=== PATIENT | female | born 1990 | race Caucasian/White ===

== ENCOUNTER 2017-10-17 11:01 | Observation (INO) | payer SELFPAY ==
[2017-10-17] MEDS ORDERED: Sodium Chloride 0.9% 1,000 ML IV ONE (11:53)
[2017-10-17] MEDS ORDERED: cefTRIAXone 2 GM Vial IVPUSH ONE (11:55)
[2017-10-17 12:35] LABS: CHLORIDE,CL 100 mmol/L (98-107); SODIUM,NA 136 mmol/L (136-145)
[2017-10-17] MEDS: Lactated Ringers 1,000 ML IV SCH ×2 (14:00→18:21)
[2017-10-17] MEDS ORDERED: Formoterol/Mometasone 200-5 MCG 8.8 GM Inhaler IH PRN (14:00)
[2017-10-17] MEDS: Enoxaparin 40 MG/0.4 ML Syringe SUBCUT SCH (14:13)
--- NOTE | 2017-10-17 15:05 | EDM.PDOC ---
ED HPI GENERAL MEDICAL PROBLEM - General Chief Complaint: Back Pain or Injury Stated Complaint: LOWER BACK PAIN Time Seen by Provider: 10/17/17 11:20 Source of Information: Reports: Patient, Family History Limitations: Reports: No Limitations - History of Present Illness INITIAL COMMENTS - FREE TEXT/NARRATIVE: Pt. states that she injured her back "cleaning her yard" yesterday. States that she lifted wrong and is now experiencing L sided low back pain. She states that she has been mildly chilled and diaphoretic. No nausea/vomiting/diarrhea. She denies any rashes. Pt. states that she has not been experiencing any dysuria. No chest pain or shortness of breath. Denies any discoloration to the urine. Pt. states that her blood sugar is always poorly controlled. She states that it typically runs higher than 300, but has been running ever higher since the back pain started. Location: Reports: Back, Generalized Quality: Reports: Burning, Dull Severity: Moderate Improves with: Reports: Rest Left Lower Back Pain Score (Numeric/FACES): 6 - Related Data Allergies Allergy/AdvReac Type Severity Reaction Status Date / Time sunflower seed Allergy Intermediate Anaphylactic Verified 10/17/17 11:15 Shock latex Allergy Other Verified 10/17/17 11:15 shellfish derived Allergy Anaphylactic Verified 10/17/17 11:15 Shock Home Meds: Home Meds metFORMIN HCl [Metformin HCl] 1,000 mg PO BID 08/07/15 [History] Albuterol Sulfate [Proventil Hfa] 1 - 2 puff INH Q4H PRN 05/25/17 [History] Fluticasone/Salmeterol [Advair 250-50 Diskus] 1 puff INH Q12H PRN 05/25/17 [ History] sitaGLIPtin Phosphate [Januvia] 100 mg PO DAILY 05/25/17 [History] Insulin Detemir [Levemir] 20 units DAILY 10/17/17 [History] Past Medical History Respiratory History: Reports: Asthma Other Respiratory History: presents to ED with cough for over a month, reported coughing up phlegm as well. Denies fever/chills/pain. States pain only on occaion with cough. Denies trying any over the counter cold medications. 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 - Past Surgical History GI Surgical History: Reports: Cholecystectomy Social & Family History - Family History Family Medical History: Noncontributory - Tobacco Use Smoking Status *Q: Unknown Ever Smoked Years of Tobacco use: 8 Used Tobacco, but Quit: Yes Month/Year Tobacco Last Used: may Second Hand Smoke Exposure: No - Alcohol Use Days Per Week of Alcohol Use: 0 - Recreational Drug Use Recreational Drug Use: Yes Drug Use in Last 12 Months: Yes Recreational Drug Type: Reports: Marijuana/Hashish Recreational Drug Use Frequency: Rarely ED ROS GENERAL - Review of Systems Review Of Systems: See Below Constitutional: Reports: Chills, Fatigue, Diaphoresis HEENT: Reports: No Symptoms Respiratory: Reports: No Symptoms Cardiovascular: Reports: No Symptoms Endocrine: Reports: No Symptoms GI/Abdominal: Reports: No Symptoms. Denies: Black Stool, Bloody Stool, Diarrhea , Hematemesis, Hematochezia, Nausea : Reports: Flank Pain, Frequency. Denies: Hematuria Musculoskeletal: Reports: No Symptoms Skin: Reports: No Symptoms Neurological: Reports: No Symptoms Psychiatric: Reports: No Symptoms ED EXAM, GENERAL - Physical Exam Exam: See Below Exam Limited By: No Limitations General Appearance: Alert, WD/WN, No Apparent Distress Throat/Mouth: Normal Inspection, Normal Lips, Normal Teeth, Normal Gums, Normal Oropharynx, Normal Voice, No Airway Compromise Head: Atraumatic, Normocephalic Neck: Normal Inspection, Supple, Non-Tender, Full Range of Motion Respiratory/Chest: No Respiratory Distress, Lungs Clear, Normal Breath Sounds, No Accessory Muscle Use, Chest Non-Tender Cardiovascular: Normal Peripheral Pulses, Regular Rate, Rhythm, No Edema, No Gallop, No JVD, No Murmur, No Rub Peripheral Pulses: 4+: Radial (L), Radial (R) GI/Abdominal: Normal Bowel Sounds, Soft, Non-Tender, No Organomegaly, No Distention, No Abnormal Bruit, No Mass (Female) Exam: Deferred Rectal (Female) Exam: Deferred Back Exam: CVA Tenderness (L) Extremities: Normal Inspection, Normal Range of Motion, Non-Tender, Normal Capillary Refill, No Pedal Edema Neurological: Alert, Oriented, CN II-XII Intact, Normal Cognition, Normal Gait, Normal Reflexes, No Motor/Sensory Deficits Psychiatric: Normal Affect, Normal Mood Skin Exam: Warm, Dry, Intact, Normal Color, No Rash Lymphatic: No Adenopathy Course - Vital Signs Last Recorded V/S: Last Vital Signs Temp 36.2 C 10/17/17 13:18 Pulse 116 H 10/17/17 13:18 Resp 18 10/17/17 13:18 BP 124/93 H 10/17/17 13:18 Pulse Ox 98 10/17/17 13:18 - Orders/Labs/Meds Orders: Active Orders 24 hr Category Date Time Status Abdomen Pelvis wo Cont [CT] Stat Exams 10/17/17 12:23 Taken CULTURE BLOOD [BC] Stat Lab 10/17/17 12:00 Received CULTURE BLOOD [BC] Stat Lab 10/17/17 12:05 Received Sodium Chloride 0.9% [Saline Flush] Med 10/17/17 11:49 Active 10 ml FLUSH ASDIRECTED PRN Blood Culture x2 Reflex Set [OM.PC] Stat Oth 10/17/17 11:50 Ordered Peripheral IV Insertion Adult [OM.PC] Routine Oth 10/17/17 11:50 Ordered Medication Orders Enoxaparin Sodium (Lovenox) 40 mg SUBCUT DAILY [facility] Last Admin: 10/17/17 14:13 Dose: 40 mg Lactated Ringer's (Ringers, Lactated) 1,000 mls @ 250 mls/hr IV ASDIRECTED ROSE Last Admin: 10/17/17 14:00 Dose: 250 mls/hr Insulin Aspart (Novolog) 5 unit SUBCUT TIDMEALS [facility] Insulin Aspart (Novolog) 0 unit SUBCUT TIDMEALS [facility]; Protocol Insulin Detemir (Levemir) 20 unit SUBCUT BEDTIME [facility] Mometasone Furoate/Formoterol Fumar (Dulera 200-5 Mcg) 2 puff IH Q12H PRN PRN Reason: shortness of breath Sitagliptin Phosphate (Januvia) 100 mg PO DAILY [facility] Sodium Chloride (Saline Flush) 10 ml FLUSH ASDIRECTED PRN PRN Reason: Keep Vein Open Labs: Laboratory Tests 10/17/17 10/17/17 10/17/17 Range/Units 11:19 11:19 12:00 WBC 16.2 H (4.0-10.0) x10^3/uL RBC 5.19 (4.00-5.50) x10^6/uL Hgb 16.3 H (12.0-16.0) g/dL Hct 45.7 (33.0-47.0) % MCV 88.1 (78.0-93.0) fL MCH 31.4 (26.0-32.0) pg MCHC 35.7 (32.0-36.0) g/dL RDW Coeff of Cristina 12.4 (10.0-15.0) % Plt Count 211 (130-400) x10^3/uL Neut % (Auto) 94.3 H (50.0-80.0) % Lymph % (Auto) 2.0 L (25.0-50.0) % [place] % (Auto) 3.1 (2.0-11.0) % Eos % (Auto) 0.4 (0.0-4.0) % Baso % (Auto) 0.2 (0.2-1.2) % PT (9.8-11.8) SEC INR (2.0-3.5) Sodium (136-145) mmol/L Potassium (3.5-5.1) mmol/L Chloride (98-107) mmol/L Carbon Dioxide (21-32) mmol/L Anion Gap (10-20) mmol/L BUN (7-18) mg/dL Creatinine (0.55-1.02) mg/dL Est Cr Clr Drug Dosing mL/min Estimated GFR (MDRD) Glucose (74-106) mg/dL Lactic Acid (0.4-2.0) mmol/L Calcium (8.5-10.1) mg/dL Corrected Calcium (8.5-10.1) mg/dL Total Bilirubin (0.2-1.0) mg/dL AST (15-37) U/L ALT (14-59) U/L Alkaline Phosphatase (46-116) U/L C-Reactive Protein (<=0.9) mg/dL Total Protein (6.4-8.2) g/dL Albumin (3.4-5.0) g/dL Globulin Albumin/Globulin Ratio Urine Color Yellow (YELLOW) Urine Appearance Cloudy H (CLEAR) Urine pH 5.5 (5.0-8.0) Ur Specific [place] 1.015 Urine Protein 100 H (NEGATIVE) mg/dL Urine Glucose (UA) 500 H (NEGATIVE) mg/dL Urine Ketones 80 H (NEGATIVE) mg/dL Urine Occult Blood Moderate H (NEGATIVE) Urine Nitrite Positive H (NEGATIVE) Urine Bilirubin Negative (NEGATIVE) Urine Urobilinogen 0.2 (0.2) EU/dL Ur Leukocyte Esterase Small H (NEGATIVE) Urine RBC 10-20 H (NOT SEEN) /HPF Urine WBC 5-10 H (NOT SEEN) /HPF Ur Squamous Epith Cells Moderate H (NEGATIVE) /HPF Amorphous Sediment Moderate Urine Bacteria Few H (NEGATIVE) /HPF Urine Mucus Few H (NEGATIVE) /LPF POC Urine HCG, Qual Negative 10/17/17 10/17/17 10/17/17 Range/Units 12:00 12:00 12:00 WBC (4.0-10.0) x10^3/uL RBC (4.00-5.50) x10^6/uL Hgb (12.0-16.0) g/dL Hct (33.0-47.0) % MCV (78.0-93.0) fL MCH (26.0-32.0) pg MCHC (32.0-36.0) g/dL RDW Coeff of Cristina (10.0-15.0) % Plt Count (130-400) x10^3/uL Neut % (Auto) (50.0-80.0) % Lymph % (Auto) (25.0-50.0) % [place] % (Auto) (2.0-11.0) % Eos % (Auto) (0.0-4.0) % Baso % (Auto) (0.2-1.2) % PT 10.0 (9.8-11.8) SEC INR 0.9 L (2.0-3.5) Sodium 136 (136-145) mmol/L Potassium 3.9 (3.5-5.1) mmol/L Chloride 100 (98-107) mmol/L Carbon Dioxide 18 L (21-32) mmol/L Anion Gap 21.9 H (10-20) mmol/L BUN 11 (7-18) mg/dL Creatinine 0.9 (0.55-1.02) mg/dL Est Cr Clr Drug Dosing 87.90 mL/min Estimated GFR (MDRD) > 60 Glucose 343 H (74-106) mg/dL Lactic Acid 3.0 H* (0.4-2.0) mmol/L Calcium 9.3 (8.5-10.1) mg/dL Corrected Calcium 9.46 (8.5-10.1) mg/dL Total Bilirubin 1.6 H (0.2-1.0) mg/dL AST 75 H (15-37) U/L ALT 115 H (14-59) U/L Alkaline Phosphatase 130 H (46-116) U/L C-Reactive Protein 6.3 H (<=0.9) mg/dL Total Protein 8.1 (6.4-8.2) g/dL Albumin 3.8 (3.4-5.0) g/dL Globulin 4.3 Albumin/Globulin Ratio 0.88 Urine Color (YELLOW) Urine Appearance (CLEAR) Urine pH (5.0-8.0) Ur Specific [place] Urine Protein (NEGATIVE) mg/dL Urine Glucose (UA) (NEGATIVE) mg/dL Urine Ketones (NEGATIVE) mg/dL Urine Occult Blood (NEGATIVE) Urine Nitrite (NEGATIVE) Urine Bilirubin (NEGATIVE) Urine Urobilinogen (0.2) EU/dL Ur Leukocyte Esterase (NEGATIVE) Urine RBC (NOT SEEN) /HPF Urine WBC (NOT SEEN) /HPF Ur Squamous Epith Cells (NEGATIVE) /HPF Amorphous Sediment Urine Bacteria (NEGATIVE) /HPF Urine Mucus (NEGATIVE) /LPF POC Urine HCG, Qual Meds: Medications Generic Name Dose Route Start Last Admin Trade Name Freq PRN Reason Stop Dose Admin Enoxaparin Sodium 40 mg 10/17/17 14:00 10/17/17 14:13 Lovenox SUBCUT 40 mg DAILY [facility] Administration Lactated Ringer's 1,000 mls @ 250 mls/hr 10/17/17 13:30 10/17/17 14:00 Ringers, Lactated IV 250 mls/hr ASDIRECTED ROSE Administration Insulin Aspart 5 unit 10/17/17 18:00 Novolog SUBCUT TIDMEALS RO[facility] Insulin Aspart 0 unit 10/17/17 18:00 Novolog SUBCUT TIDMEALS [facility] Protocol Insulin Detemir 20 unit 10/17/17 20:00 Levemir SUBCUT BEDTIME [facility] Mometasone Furoate/Formoterol Fumar 2 puff 10/17/17 14:00 Dulera 200-5 Mcg IH Q12H PRN shortness of breath Sitagliptin Phosphate 100 mg 10/18/17 08:00 Januvia PO DAILY [facility] Sodium Chloride 10 ml 10/17/17 11:49 Saline Flush FLUSH ASDIRECTED PRN Keep Vein Open Discontinued Medications Generic Name Dose Route Start Last Admin Trade Name Freq PRN Reason Stop Dose Admin Ceftriaxone Sodium 2 gm 10/17/17 11:55 10/17/17 12:09 Rocephin IVPUSH 10/17/17 11:56 2 gm ONETIME ONE Administration Sodium Chloride 1,000 mls @ 1,000 mls/hr 10/17/17 11:53 10/17/17 12:05 Normal Saline IV 10/17/17 12:52 1,000 mls/hr .BOLUS ONE Administration - Radiology Interpretation Free Text/Narrative:: CT abdomen and pelvis without contrast were negative for kidney stone Departure - Departure Time of Disposition: 13:18 Disposition: Refer to Observation Clinical Impression: Pyelonephritis, Sepsis secondary to UTI - Discharge Information - Problem List Review Problem List Initiated/Reviewed/Updated: Yes - My Orders Last 24 Hours: My Active Orders 10/17/17 11:49 Sodium Chloride 0.9% [Saline Flush] 10 ml FLUSH ASDIRECTED PRN 10/17/17 11:50 Blood Culture x2 Reflex Set [OM.PC] Stat Peripheral IV Insertion Adult [OM.PC] Routine 10/17/17 12:00 CULTURE BLOOD [BC] Stat 10/17/17 12:05 CULTURE BLOOD [BC] Stat 10/17/17 12:23 Abdomen Pelvis wo Cont [CT] Stat - Assessment/Plan Admission H&P: Please use this note as an admission H&P Last 24 Hours: My Active Orders 10/17/17 11:49 Sodium Chloride 0.9% [Saline Flush] 10 ml FLUSH ASDIRECTED PRN 10/17/17 11:50 Blood Culture x2 Reflex Set [OM.PC] Stat Peripheral IV Insertion Adult [OM.PC] Routine 10/17/17 12:00 CULTURE BLOOD [BC] Stat 10/17/17 12:05 CULTURE BLOOD [BC] Stat 10/17/17 12:23 Abdomen Pelvis wo Cont [CT] Stat Assessment:: Sepsis; acute pyelonephritis Type 2 DM, uncontrolled Plan: Pt. will be admitted to our facility on observtion status. Lactic acid will be trended. Rocephin 1mg daily for UTI. She was given 2 gm today. She was given a liter or Normal Saline and will be transitioned to LR at 250ml/ hr. Pt. was started on sliding scale insulin. Her Metformin was discontinued due to her lactic acidosis.
[2017-10-17] MEDS ORDERED: Insulin Aspart 100 Units/ML 3 ML Pen SUBCUT ONE (15:34)
[2017-10-17] MEDS ORDERED: Ketorolac 30 MG/ML SDV IVPUSH ONE (17:56)
[2017-10-17] MEDS ORDERED: Ondansetron 4 MG/2 ML SDV IVPUSH ONE (17:56)
[2017-10-17] MEDS ORDERED: Insulin Aspart 100 Units/ML 3 ML Pen SUBCUT SCH (18:00)
[2017-10-17] MEDS: Sodium Chloride 0.9% 10 ML Syringe FLUSH PRN (18:21)
[2017-10-17] MEDS: Insulin Aspart 100 Units/ML 3 ML Pen SUBCUT SCH (18:25)
[2017-10-17] MEDS: Insulin Aspart 100 Units/ML 3 ML Pen **OWN MED SUBCUT SCH (18:25)
[2017-10-17] MEDS: Insulin Detemir 100 Units/ML 3 ML Pen SUBCUT SCH (20:11)
[2017-10-17] MEDS: Acetaminophen/HYDROcodone 325-10 MG Tab PO PRN (20:47)
[2017-10-18] MEDS: Lactated Ringers 1,000 ML IV SCH ×3 (00:09→16:29)
[2017-10-18] MEDS: Acetaminophen/HYDROcodone 325-10 MG Tab PO PRN ×2 (04:01→21:03)
[2017-10-18] MEDS: Enoxaparin 40 MG/0.4 ML Syringe SUBCUT SCH (07:46)
[2017-10-18] MEDS: Insulin Aspart 100 Units/ML 3 ML Pen SUBCUT SCH ×3 (07:52→17:27)
[2017-10-18] MEDS: Insulin Aspart 100 Units/ML 3 ML Pen **OWN MED SUBCUT SCH ×4 (07:52→21:07)
[2017-10-18 08:43] LABS: CHLORIDE,CL 101 mmol/L (98-107); SODIUM,NA 137 mmol/L (136-145)
[2017-10-18] MEDS: cefTRIAXone 1 GM Vial IVPUSH SCH (11:36)
--- NOTE | 2017-10-18 11:48 | PCM.PN ---
- General Info Date of Service: 10/18/17 Admission Dx/Problem (Free Text): Sepsis, pyelonephritis, uncontrolled DM II Functional Status: Reports: Pain Controlled, Tolerating Diet, Ambulating, Urinating - Review of Systems General: Reports: No Symptoms HEENT: Reports: No Symptoms Pulmonary: Reports: No Symptoms Cardiovascular: Reports: No Symptoms Gastrointestinal: Reports: No Symptoms Genitourinary: Reports: No Symptoms Musculoskeletal: Reports: No Symptoms Skin: Reports: No Symptoms Neurological: Reports: No Symptoms Psychiatric: Reports: No Symptoms - Patient Data Vitals - Most Recent: Last Vital Signs Temp 36.9 C 10/18/17 10:00 Pulse 94 10/18/17 10:00 Resp 20 10/18/17 10:00 BP 106/61 10/18/17 10:00 Pulse Ox 94 L 10/18/17 10:00 Weight - Most Recent: 117.027 kg I&O - Last 24 Hours: Intake & Output 10/17/17 10/18/17 10/18/17 22:59 06:59 14:59 Intake Total 1600 3267 1170 Output Total 600 1650 1600 Balance 1000 1617 -430 Lab Results Last 24 Hours: Laboratory Results - last 24 hr 10/17/17 10/17/17 10/17/17 Range/Units 11:19 11:19 12:00 WBC 16.2 H (4.0-10.0) x10^3/uL RBC 5.19 (4.00-5.50) x10^6/uL Hgb 16.3 H (12.0-16.0) g/dL Hct 45.7 (33.0-47.0) % MCV 88.1 (78.0-93.0) fL MCH 31.4 (26.0-32.0) pg MCHC 35.7 (32.0-36.0) g/dL RDW Coeff of Cristina 12.4 (10.0-15.0) % Plt Count 211 (130-400) x10^3/uL Neut % (Auto) 94.3 H (50.0-80.0) % Lymph % (Auto) 2.0 L (25.0-50.0) % [place] % (Auto) 3.1 (2.0-11.0) % Eos % (Auto) 0.4 (0.0-4.0) % Baso % (Auto) 0.2 (0.2-1.2) % PT (9.8-11.8) SEC INR (2.0-3.5) Sodium (136-145) mmol/L Potassium (3.5-5.1) mmol/L Chloride (98-107) mmol/L Carbon Dioxide (21-32) mmol/L Anion Gap (10-20) mmol/L BUN (7-18) mg/dL Creatinine (0.55-1.02) mg/dL Est Cr Clr Drug Dosing mL/min Estimated GFR (MDRD) Glucose (74-106) mg/dL POC Glucose (74-106) mg/dL Lactic Acid (0.4-2.0) mmol/L Calcium (8.5-10.1) mg/dL Corrected Calcium (8.5-10.1) mg/dL Total Bilirubin (0.2-1.0) mg/dL AST (15-37) U/L ALT (14-59) U/L Alkaline Phosphatase (46-116) U/L C-Reactive Protein (<=0.9) mg/dL Total Protein (6.4-8.2) g/dL Albumin (3.4-5.0) g/dL Globulin Albumin/Globulin Ratio Urine Color Yellow (YELLOW) Urine Appearance Cloudy H (CLEAR) Urine pH 5.5 (5.0-8.0) Ur Specific [place] 1.015 Urine Protein 100 H (NEGATIVE) mg/dL Urine Glucose (UA) 500 H (NEGATIVE) mg/dL Urine Ketones 80 H (NEGATIVE) mg/dL Urine Occult Blood Moderate H (NEGATIVE) Urine Nitrite Positive H (NEGATIVE) Urine Bilirubin Negative (NEGATIVE) Urine Urobilinogen 0.2 (0.2) EU/dL Ur Leukocyte Esterase Small H (NEGATIVE) Urine RBC 10-20 H (NOT SEEN) /HPF Urine WBC 5-10 H (NOT SEEN) /HPF Ur Squamous Epith Cells Moderate H (NEGATIVE) /HPF Amorphous Sediment Moderate Urine Bacteria Few H (NEGATIVE) /HPF Urine Mucus Few H (NEGATIVE) /LPF POC Urine HCG, Qual Negative 10/17/17 10/17/17 10/17/17 Range/Units 12:00 12:00 12:00 WBC (4.0-10.0) x10^3/uL RBC (4.00-5.50) x10^6/uL Hgb (12.0-16.0) g/dL Hct (33.0-47.0) % MCV (78.0-93.0) fL MCH (26.0-32.0) pg MCHC (32.0-36.0) g/dL RDW Coeff of Cristina (10.0-15.0) % Plt Count (130-400) x10^3/uL Neut % (Auto) (50.0-80.0) % Lymph % (Auto) (25.0-50.0) % [place] % (Auto) (2.0-11.0) % Eos % (Auto) (0.0-4.0) % Baso % (Auto) (0.2-1.2) % PT 10.0 (9.8-11.8) SEC INR 0.9 L (2.0-3.5) Sodium 136 (136-145) mmol/L Potassium 3.9 (3.5-5.1) mmol/L Chloride 100 (98-107) mmol/L Carbon Dioxide 18 L (21-32) mmol/L Anion Gap 21.9 H (10-20) mmol/L BUN 11 (7-18) mg/dL Creatinine 0.9 (0.55-1.02) mg/dL Est Cr Clr Drug Dosing 87.90 mL/min Estimated GFR (MDRD) > 60 Glucose 343 H (74-106) mg/dL POC Glucose (74-106) mg/dL Lactic Acid 3.0 H* (0.4-2.0) mmol/L Calcium 9.3 (8.5-10.1) mg/dL Corrected Calcium 9.46 (8.5-10.1) mg/dL Total Bilirubin 1.6 H (0.2-1.0) mg/dL AST 75 H (15-37) U/L ALT 115 H (14-59) U/L Alkaline Phosphatase 130 H (46-116) U/L C-Reactive Protein 6.3 H (<=0.9) mg/dL Total Protein 8.1 (6.4-8.2) g/dL Albumin 3.8 (3.4-5.0) g/dL Globulin 4.3 Albumin/Globulin Ratio 0.88 Urine Color (YELLOW) Urine Appearance (CLEAR) Urine pH (5.0-8.0) Ur Specific [place] Urine Protein (NEGATIVE) mg/dL Urine Glucose (UA) (NEGATIVE) mg/dL Urine Ketones (NEGATIVE) mg/dL Urine Occult Blood (NEGATIVE) Urine Nitrite (NEGATIVE) Urine Bilirubin (NEGATIVE) Urine Urobilinogen (0.2) EU/dL Ur Leukocyte Esterase (NEGATIVE) Urine RBC (NOT SEEN) /HPF Urine WBC (NOT SEEN) /HPF Ur Squamous Epith Cells (NEGATIVE) /HPF Amorphous Sediment Urine Bacteria (NEGATIVE) /HPF Urine Mucus (NEGATIVE) /LPF POC Urine HCG, Qual 10/17/17 10/17/17 10/17/17 Range/Units 15:29 17:25 18:05 WBC (4.0-10.0) x10^3/uL RBC (4.00-5.50) x10^6/uL Hgb (12.0-16.0) g/dL Hct (33.0-47.0) % MCV (78.0-93.0) fL MCH (26.0-32.0) pg MCHC (32.0-36.0) g/dL RDW Coeff of Cristina (10.0-15.0) % Plt Count (130-400) x10^3/uL Neut % (Auto) (50.0-80.0) % Lymph % (Auto) (25.0-50.0) % [place] % (Auto) (2.0-11.0) % Eos % (Auto) (0.0-4.0) % Baso % (Auto) (0.2-1.2) % PT (9.8-11.8) SEC INR (2.0-3.5) Sodium (136-145) mmol/L Potassium (3.5-5.1) mmol/L Chloride (98-107) mmol/L Carbon Dioxide (21-32) mmol/L Anion Gap (10-20) mmol/L BUN (7-18) mg/dL Creatinine (0.55-1.02) mg/dL Est Cr Clr Drug Dosing mL/min Estimated GFR (MDRD) Glucose (74-106) mg/dL POC Glucose 384 H 328 H (74-106) mg/dL Lactic Acid 2.2 H* (0.4-2.0) mmol/L Calcium (8.5-10.1) mg/dL Corrected Calcium (8.5-10.1) mg/dL Total Bilirubin (0.2-1.0) mg/dL AST (15-37) U/L ALT (14-59) U/L Alkaline Phosphatase (46-116) U/L C-Reactive Protein (<=0.9) mg/dL Total Protein (6.4-8.2) g/dL Albumin (3.4-5.0) g/dL Globulin Albumin/Globulin Ratio Urine Color (YELLOW) Urine Appearance (CLEAR) Urine pH (5.0-8.0) Ur Specific [place] Urine Protein (NEGATIVE) mg/dL Urine Glucose (UA) (NEGATIVE) mg/dL Urine Ketones (NEGATIVE) mg/dL Urine Occult Blood (NEGATIVE) Urine Nitrite (NEGATIVE) Urine Bilirubin (NEGATIVE) Urine Urobilinogen (0.2) EU/dL Ur Leukocyte Esterase (NEGATIVE) Urine RBC (NOT SEEN) /HPF Urine WBC (NOT SEEN) /HPF Ur Squamous Epith Cells (NEGATIVE) /HPF Amorphous Sediment Urine Bacteria (NEGATIVE) /HPF Urine Mucus (NEGATIVE) /LPF POC Urine HCG, Qual 10/17/17 10/17/17 10/18/17 Range/Units 20:06 23:10 06:44 WBC (4.0-10.0) x10^3/uL RBC (4.00-5.50) x10^6/uL Hgb (12.0-16.0) g/dL Hct (33.0-47.0) % MCV (78.0-93.0) fL MCH (26.0-32.0) pg MCHC (32.0-36.0) g/dL RDW Coeff of Cristina (10.0-15.0) % Plt Count (130-400) x10^3/uL Neut % (Auto) (50.0-80.0) % Lymph % (Auto) (25.0-50.0) % [place] % (Auto) (2.0-11.0) % Eos % (Auto) (0.0-4.0) % Baso % (Auto) (0.2-1.2) % PT (9.8-11.8) SEC INR (2.0-3.5) Sodium (136-145) mmol/L Potassium (3.5-5.1) mmol/L Chloride (98-107) mmol/L Carbon Dioxide (21-32) mmol/L Anion Gap (10-20) mmol/L BUN (7-18) mg/dL Creatinine (0.55-1.02) mg/dL Est Cr Clr Drug Dosing mL/min Estimated GFR (MDRD) Glucose (74-106) mg/dL POC Glucose 233 H 295 H (74-106) mg/dL Lactic Acid 1.2 (0.4-2.0) mmol/L Calcium (8.5-10.1) mg/dL Corrected Calcium (8.5-10.1) mg/dL Total Bilirubin (0.2-1.0) mg/dL AST (15-37) U/L ALT (14-59) U/L Alkaline Phosphatase (46-116) U/L C-Reactive Protein (<=0.9) mg/dL Total Protein (6.4-8.2) g/dL Albumin (3.4-5.0) g/dL Globulin Albumin/Globulin Ratio Urine Color (YELLOW) Urine Appearance (CLEAR) Urine pH (5.0-8.0) Ur Specific [place] Urine Protein (NEGATIVE) mg/dL Urine Glucose (UA) (NEGATIVE) mg/dL Urine Ketones (NEGATIVE) mg/dL Urine Occult Blood (NEGATIVE) Urine Nitrite (NEGATIVE) Urine Bilirubin (NEGATIVE) Urine Urobilinogen (0.2) EU/dL Ur Leukocyte Esterase (NEGATIVE) Urine RBC (NOT SEEN) /HPF Urine WBC (NOT SEEN) /HPF Ur Squamous Epith Cells (NEGATIVE) /HPF Amorphous Sediment Urine Bacteria (NEGATIVE) /HPF Urine Mucus (NEGATIVE) /LPF POC Urine HCG, Qual 10/18/17 10/18/17 10/18/17 Range/Units 08:22 08:22 08:22 WBC 9.6 (4.0-10.0) x10^3/uL RBC 4.21 (4.00-5.50) x10^6/uL Hgb 13.3 D (12.0-16.0) g/dL Hct 38.8 (33.0-47.0) % MCV 92.2 D (78.0-93.0) fL MCH 31.6 (26.0-32.0) pg MCHC 34.3 (32.0-36.0) g/dL RDW Coeff of Cristina 12.3 (10.0-15.0) % Plt Count 170 (130-400) x10^3/uL Neut % (Auto) (50.0-80.0) % Lymph % (Auto) (25.0-50.0) % [place] % (Auto) (2.0-11.0) % Eos % (Auto) (0.0-4.0) % Baso % (Auto) (0.2-1.2) % PT (9.8-11.8) SEC INR (2.0-3.5) Sodium 137 (136-145) mmol/L Potassium 3.7 (3.5-5.1) mmol/L Chloride 101 (98-107) mmol/L Carbon Dioxide 26 (21-32) mmol/L Anion Gap 13.7 (10-20) mmol/L BUN 7 (7-18) mg/dL Creatinine 0.8 (0.55-1.02) mg/dL Est Cr Clr Drug Dosing 98.88 mL/min Estimated GFR (MDRD) > 60 Glucose 308 H (74-106) mg/dL POC Glucose (74-106) mg/dL Lactic Acid 1.0 (0.4-2.0) mmol/L Calcium 8.6 (8.5-10.1) mg/dL Corrected Calcium (8.5-10.1) mg/dL Total Bilirubin (0.2-1.0) mg/dL AST (15-37) U/L ALT (14-59) U/L Alkaline Phosphatase (46-116) U/L C-Reactive Protein (<=0.9) mg/dL Total Protein (6.4-8.2) g/dL Albumin (3.4-5.0) g/dL Globulin Albumin/Globulin Ratio Urine Color (YELLOW) Urine Appearance (CLEAR) Urine pH (5.0-8.0) Ur Specific [place] Urine Protein (NEGATIVE) mg/dL Urine Glucose (UA) (NEGATIVE) mg/dL Urine Ketones (NEGATIVE) mg/dL Urine Occult Blood (NEGATIVE) Urine Nitrite (NEGATIVE) Urine Bilirubin (NEGATIVE) Urine Urobilinogen (0.2) EU/dL Ur Leukocyte Esterase (NEGATIVE) Urine RBC (NOT SEEN) /HPF Urine WBC (NOT SEEN) /HPF Ur Squamous Epith Cells (NEGATIVE) /HPF Amorphous Sediment Urine Bacteria (NEGATIVE) /HPF Urine Mucus (NEGATIVE) /LPF POC Urine HCG, Qual 10/18/17 Range/Units 10:48 WBC (4.0-10.0) x10^3/uL RBC (4.00-5.50) x10^6/uL Hgb (12.0-16.0) g/dL Hct (33.0-47.0) % MCV (78.0-93.0) fL MCH (26.0-32.0) pg MCHC (32.0-36.0) g/dL RDW Coeff of Cristina (10.0-15.0) % Plt Count (130-400) x10^3/uL Neut % (Auto) (50.0-80.0) % Lymph % (Auto) (25.0-50.0) % [place] % (Auto) (2.0-11.0) % Eos % (Auto) (0.0-4.0) % Baso % (Auto) (0.2-1.2) % PT (9.8-11.8) SEC INR (2.0-3.5) Sodium (136-145) mmol/L Potassium (3.5-5.1) mmol/L Chloride (98-107) mmol/L Carbon Dioxide (21-32) mmol/L Anion Gap (10-20) mmol/L BUN (7-18) mg/dL Creatinine (0.55-1.02) mg/dL Est Cr Clr Drug Dosing mL/min Estimated GFR (MDRD) Glucose (74-106) mg/dL POC Glucose 308 H (74-106) mg/dL Lactic Acid (0.4-2.0) mmol/L Calcium (8.5-10.1) mg/dL Corrected Calcium (8.5-10.1) mg/dL Total Bilirubin (0.2-1.0) mg/dL AST (15-37) U/L ALT (14-59) U/L Alkaline Phosphatase (46-116) U/L C-Reactive Protein (<=0.9) mg/dL Total Protein (6.4-8.2) g/dL Albumin (3.4-5.0) g/dL Globulin Albumin/Globulin Ratio Urine Color (YELLOW) Urine Appearance (CLEAR) Urine pH (5.0-8.0) Ur Specific [place] Urine Protein (NEGATIVE) mg/dL Urine Glucose (UA) (NEGATIVE) mg/dL Urine Ketones (NEGATIVE) mg/dL Urine Occult Blood (NEGATIVE) Urine Nitrite (NEGATIVE) Urine Bilirubin (NEGATIVE) Urine Urobilinogen (0.2) EU/dL Ur Leukocyte Esterase (NEGATIVE) Urine RBC (NOT SEEN) /HPF Urine WBC (NOT SEEN) /HPF Ur Squamous Epith Cells (NEGATIVE) /HPF Amorphous Sediment Urine Bacteria (NEGATIVE) /HPF Urine Mucus (NEGATIVE) /LPF POC Urine HCG, Qual Jose Results Last 24 Hours: Microbiology 10/17/17 11:19 Urine Culture - Preliminary Urine, Clean Catch Gram Negative Rods Med Orders - Current: Current Medications Acetaminophen (Tylenol Extra Strength) 1,000 mg PO Q8H PRN PRN Reason: Pain Hydrocodone Bitart/Acetaminophen ([place] 325-10 Mg) 1 tab PO Q4H PRN PRN Reason: Pain Last Admin: 10/18/17 04:01 Dose: 1 tab Ceftriaxone Sodium (Rocephin) 1 gm IVPUSH DAILY@1200 COUNT INCLUDES THE [facility] Last Admin: 10/18/17 11:36 Dose: 1 gm Enoxaparin Sodium (Lovenox) 40 mg SUBCUT DAILY COUNT INCLUDES THE [facility] Last Admin: 10/18/17 07:46 Dose: 40 mg Lactated Ringer's (Ringers, Lactated) 1,000 mls @ 125 mls/hr IV ASDIRECTED COUNT INCLUDES THE [facility] Last Admin: 10/18/17 08:11 Dose: 125 mls/hr Insulin Aspart (Novolog) 5 unit SUBCUT TIDMEALS COUNT INCLUDES THE [facility] Last Admin: 10/18/17 11:35 Dose: 5 units Insulin Aspart (Novolog) 0 unit SUBCUT TIDMEALS COUNT INCLUDES THE [facility]; Protocol Last Admin: 10/18/17 11:36 Dose: 4 units Insulin Detemir (Levemir) 20 unit SUBCUT BEDTIME COUNT INCLUDES THE [facility] Last Admin: 10/17/17 20:11 Dose: 20 units Mometasone Furoate/Formoterol Fumar (Dulera 200-5 Mcg) 2 puff IH Q12H PRN PRN Reason: shortness of breath Sitagliptin Phosphate (Januvia) 100 mg PO DAILY COUNT INCLUDES THE [facility] Last Admin: 10/18/17 07:51 Dose: 100 mg Sodium Chloride (Saline Flush) 10 ml FLUSH ASDIRECTED PRN PRN Reason: Keep Vein Open Last Admin: 10/17/17 18:21 Dose: 10 ml Discontinued Medications Ceftriaxone Sodium (Rocephin) 2 gm IVPUSH ONETIME ONE Stop: 10/17/17 11:56 Last Admin: 10/17/17 12:09 Dose: 2 gm Sodium Chloride (Normal Saline) 1,000 mls @ 1,000 mls/hr IV .BOLUS ONE Stop: 10/17/17 12:52 Last Admin: 10/17/17 12:05 Dose: 1,000 mls/hr Insulin Aspart (Novolog) 0 unit SUBCUT TIDMEALS ROSE; Protocol Insulin Aspart (Novolog) 10 unit SUBCUT ONETIME ONE; Protocol Stop: 10/17/17 15:35 Last Admin: 10/17/17 15:43 Dose: 10 units Ketorolac Tromethamine (Toradol) 30 mg IVPUSH ONETIME ONE Stop: 10/17/17 17:57 Last Admin: 10/17/17 18:20 Dose: 30 mg Ondansetron HCl (Zofran) 4 mg IVPUSH ONETIME ONE Stop: 10/17/17 17:57 Last Admin: 10/17/17 18:21 Dose: 4 mg - Exam General: Alert, Oriented, Cooperative, No Acute Distress Lungs: Clear to Auscultation, Normal Respiratory Effort Cardiovascular: Regular Rate, Regular Rhythm GI/Abdominal Exam: Normal Bowel Sounds, Soft, Non-Tender, No Organomegaly, No Distention, No Abnormal Bruit, No Mass, Pelvis Stable Back Exam: Normal Inspection, Full Range of Motion Extremities: Normal Inspection, Normal Range of Motion, Non-Tender, No Pedal Edema, Normal Capillary Refill Peripheral Pulses: 2+: Posterior Tibial (L), Posterior Tibial (R), Dorsalis Pedis (L), Dorsalis Pedis (R) Skin: Warm, Dry, Intact Neurological: No New Focal Deficit - Problem List & Annotations (1) Pyelonephritis SNOMED Code(s): 34985016 Code(s): N12 - TUBULO-INTERSTITIAL NEPHRITIS, NOT SPCF ACUTE OR CHRONIC Status: Acute Priority: Medium Current Visit: Yes (2) Sepsis secondary to UTI SNOMED Code(s): 078421697 Code(s): A41.9 - SEPSIS, UNSPECIFIED ORGANISM; N39.0 - URINARY TRACT INFECTION, SITE NOT SPECIFIED Status: Acute Priority: Medium Current Visit : Yes (3) Diabetes SNOMED Code(s): 03337936 Code(s): E11.9 - TYPE 2 DIABETES MELLITUS WITHOUT COMPLICATIONS Status: Acute Priority: Medium Current Visit: No Qualifiers: Diabetes mellitus type: type 2 Diabetes mellitus termite treater helper insulin use: without fpc use Diabetes mellitus complication status: with skin complications Diabetes mellitus complication detail: with other skin complication Qualified Code(s): E11.628 - Type 2 diabetes mellitus with other skin complications - Problem List Review Problem List Initiated/Reviewed/Updated: Yes - My Orders Last 24 Hours: My Active Orders 10/17/17 20:31 Acetaminophen [Tylenol Extra Strength] 1,000 mg PO Q8H PRN 10/17/17 20:34 Acetaminophen/HYDROcodone [[place] 325-10 MG] 1 tab PO Q4H PRN - Plan Plan:: Will keep patient for 1 more day Continue IV fluids Lactic acid - now normal - will dc serial Lactic acid Continue 1 GM IV Rocephin Continue sliding scale insulin, levemir Will continue to hold Metformin until discharge Initiate oral antibiotic at discharge Discharge with sliding scale insulin
[2017-10-18] MEDS: Acetaminophen 500 MG Tab PO PRN (16:28)
[2017-10-18] MEDS: Insulin Detemir 100 Units/ML 3 ML Pen SUBCUT SCH (19:42)
[2017-10-19] MEDS: Acetaminophen 500 MG Tab PO PRN ×2 (02:22→09:17)
[2017-10-19] MEDS: Enoxaparin 40 MG/0.4 ML Syringe SUBCUT SCH (07:51)
[2017-10-19] MEDS: Sodium Chloride 0.9% 10 ML Syringe FLUSH PRN (07:52)
[2017-10-19] MEDS: Insulin Aspart 100 Units/ML 3 ML Pen SUBCUT SCH ×2 (07:53→11:28)
[2017-10-19] MEDS: Insulin Aspart 100 Units/ML 3 ML Pen **OWN MED SUBCUT SCH ×2 (07:54→11:28)
[2017-10-19] MEDS: cefTRIAXone 1 GM Vial IVPUSH SCH ×2 (09:17→11:31)
[2017-10-19 10:21] VITALS: BP 130/71
--- NOTE | 2017-10-20 17:50 | PCM.DCSUM1 ---
Discharge Summary - Hospital Course Free Text/Narrative:: Pt. was hospitalized observation status for 2 days with acute pyelonephritis. Pt. states that she started developing R sided mid/low back pain the day she presented to the ER. She denied any dysuria, chest pain, or shortness of breath. She has been been experiencing any fever or chills. Pt. was started on IV rocephin and was hydrated with crystalloids, as she was quite dehydrated. Pt. was feeling much better at time of discharge and was requesting to be released. She did meet sepsis criteria. Her lactic acid was trended and has normalized. Her vitals signs have remained stable and her blood cultures negative. - Discharge Data Discharge Date: 10/19/17 Discharge Disposition: Home, Self-Care 01 Condition: Good - Discharge Diagnosis/Problem(s) (1) Pyelonephritis SNOMED Code(s): 48135405 ICD Code: N12 - TUBULO-INTERSTITIAL NEPHRITIS, NOT SPCF ACUTE OR CHRONIC Status: Acute Priority: Medium (2) Sepsis secondary to UTI SNOMED Code(s): 240380084 ICD Code: A41.9 - SEPSIS, UNSPECIFIED ORGANISM; N39.0 - URINARY TRACT INFECTION, SITE NOT SPECIFIED Status: Acute Priority: Medium - Patient Instructions Diet: Diabetic Diet Activity: As Tolerated Driving: Do Not Drive Showering/Bathing: May Shower - Discharge Plan Prescriptions/Med Rec: Insulin Aspart [NovoLOG] 5 unit SUBCUT TIDMEALS #3 pen Home Medications: Home Meds Albuterol Sulfate [Proventil Hfa] 1 - 2 puff INH Q4H PRN 05/25/17 [History] Fluticasone/Salmeterol [Advair 250-50 Diskus] 1 puff INH Q12H PRN 05/25/17 [ History] sitaGLIPtin Phosphate [Januvia] 100 mg PO DAILY 05/25/17 [History] Insulin Aspart [NovoLOG] 5 unit SUBCUT TIDMEALS #3 pen 10/19/17 [Rx] Insulin Detemir [Levemir] 23 units SQ DAILY #0 10/19/17 [Rx] Forms: ED Department Discharge Referrals: PCP,None [Primary Care Provider] - - Patient Data Vitals - Most Recent: Last Vital Signs Temp 36.4 C 10/19/17 10:00 Pulse 68 10/19/17 10:00 Resp 16 10/19/17 10:00 BP 130/71 10/19/17 10:00 Pulse Ox 97 10/19/17 10:00 Weight - Most Recent: 117.027 kg SAMANTHA Results - Last 24 hrs: Microbiology 10/17/17 12:05 Aerobic Blood Culture - Preliminary Blood - Venous - Lab Draw NO GROWTH AFTER 3 DAYS Anaerobic Blood Culture - Preliminary NO GROWTH AFTER 3 DAYS 10/17/17 12:00 Aerobic Blood Culture - Preliminary Blood - Venous NO GROWTH AFTER 3 DAYS Anaerobic Blood Culture - Preliminary NO GROWTH AFTER 3 DAYS Med Orders - Current: Current Medications Discontinued Medications Acetaminophen (Tylenol Extra Strength) 1,000 mg PO Q8H PRN PRN Reason: Pain Last Admin: 10/19/17 09:17 Dose: 1,000 mg Hydrocodone Bitart/Acetaminophen ([place] 325-10 Mg) 1 tab PO Q4H PRN PRN Reason: Pain Last Admin: 10/18/17 21:03 Dose: 1 tab Ceftriaxone Sodium (Rocephin) 2 gm IVPUSH ONETIME ONE Stop: 10/17/17 11:56 Last Admin: 10/17/17 12:09 Dose: 2 gm Ceftriaxone Sodium (Rocephin) 1 gm IVPUSH DAILY@1200 [facility] Last Admin: 10/19/17 11:31 Dose: Not Given Enoxaparin Sodium (Lovenox) 40 mg SUBCUT DAILY [facility] Last Admin: 10/19/17 07:51 Dose: 40 mg Sodium Chloride (Normal Saline) 1,000 mls @ 1,000 mls/hr IV .BOLUS ONE Stop: 10/17/17 12:52 Last Admin: 10/17/17 12:05 Dose: 1,000 mls/hr Lactated Ringer's (Ringers, Lactated) 1,000 mls @ 125 mls/hr IV ASDIRECTED [facility] Last Admin: 10/18/17 16:29 Dose: 125 mls/hr Insulin Aspart (Novolog) 5 unit SUBCUT TIDMEALS [facility] Last Admin: 10/19/17 11:28 Dose: 5 units Insulin Aspart (Novolog) 0 unit SUBCUT TIDMEALS [facility]; Protocol Insulin Aspart (Novolog) 10 unit SUBCUT ONETIME ONE; Protocol Stop: 10/17/17 15:35 Last Admin: 10/17/17 15:43 Dose: 10 units Insulin Aspart (Novolog) 0 unit SUBCUT TIDMEALS [facility]; Protocol Last Admin: 10/19/17 11:28 Dose: 2 units Insulin Detemir (Levemir) 20 unit SUBCUT BEDTIME [facility] Last Admin: 10/18/17 19:42 Dose: 20 units Ketorolac Tromethamine (Toradol) 30 mg IVPUSH ONETIME ONE Stop: 10/17/17 17:57 Last Admin: 10/17/17 18:20 Dose: 30 mg Mometasone Furoate/Formoterol Fumar (Dulera 200-5 Mcg) 2 puff IH Q12H PRN PRN Reason: shortness of breath Ondansetron HCl (Zofran) 4 mg IVPUSH ONETIME ONE Stop: 10/17/17 17:57 Last Admin: 10/17/17 18:21 Dose: 4 mg Sitagliptin Phosphate (Januvia) 100 mg PO DAILY [facility] Last Admin: 10/19/17 07:51 Dose: 100 mg Sodium Chloride (Saline Flush) 10 ml FLUSH ASDIRECTED PRN PRN Reason: Keep Vein Open Last Admin: 10/19/17 07:52 Dose: 10 ml
== END 2017-10-19 11:47 | disposition home or self-care (01) ==
LOC: VM.ED 11:01 → VM.MS 13:11
PROVIDERS: ADMIT Physician Assistant; ATTEND Physician Assistant
DX: N12 Tubulo-interstitial nephritis, not specified as acute or chronic (principal); A41.9 Sepsis, unspecified organism; N39.0 Urinary tract infection, site not specified; J45.909 Unspecified asthma, uncomplicated; E11.628 Type 2 diabetes mellitus with other skin complications; F41.9 Anxiety disorder, unspecified; F32.9 Major depressive disorder, single episode, unspecified; Z79.4 Long term (current) use of insulin; Z79.899 Other long term (current) drug therapy; Z91.040 Latex allergy status; Z91.018 Allergy to other foods; Z91.013 Allergy to seafood
CPT/HCPCS: 36415; 74176; 80048; 80053; 81001; 81025; 82962; 83605; 85025; 85027; 85610; 86140; 87040; 87086; 87088; 87186; 96361; 96374; 99285; A9270; J0696; J1650; J1815; J1885; J2405; J7030; J7050; J7120; 96372; 96375; 96376; G0378

== ENCOUNTER 2021-01-18 14:16 | Emergency (ER) | payer SELFPAY ==
[2021-01-18 14:26] VITALS: BP 130/85; PULSE 97
[2021-01-18] MEDS ORDERED: Sodium Chloride 0.9% 10 ML Syringe FLUSH PRN (14:41)
--- NOTE | 2021-01-18 19:15 | EDM.PDOC ---
ED HPI GENERAL MEDICAL PROBLEM - General Chief Complaint: ENT Problem Stated Complaint: SINUS INFECTION Time Seen by Provider: 01/18/21 14:20 Source of Information: Reports: Patient History Limitations: Reports: No Limitations - History of Present Illness INITIAL COMMENTS - FREE TEXT/NARRATIVE: Pt. relates that she has been feeling poorly for over a week, worse in the past 4 days. She has had sinus congestion and facial pain for 7 days. She is running a fever at home. Relates that the pain is located primarily over the R maxillary area. No frontal pain. She states that over the past 4 days she has noticed some increased fullness of her hears and sore throat. Pt. has minimal cough. No nausea, vomiting, or diarrhea. No melena, hematochezia, or hematemesis. Pt. denies any rashes. No dark or bloody stools. She has not been around any ill contracts that she is aware of. Onset: Today Onset Date: 01/18/21 Location: Reports: Head, Face, Chest Associated Symptoms: Reports: Cough, Fever/Chills, Headaches - Related Data Allergies Allergy/AdvReac Type Severity Reaction Status Date / Time shellfish derived Allergy Severe Anaphylactic Verified 01/18/21 14:27 Shock sunflower seed Allergy Severe Anaphylactic Verified 01/18/21 14:27 Shock latex Allergy Other Verified 01/18/21 14:27 Home Meds: Home Meds . [No Known Home Meds] 01/18/21 [History] Past Medical History Respiratory History: Reports: Asthma Other Respiratory History: presents to ED with cough for over a month, reported coughing up phlegm as well. Denies fever/chills/pain. States pain only on occaion with cough. Denies trying any over the counter cold medications. [employer] History: Reports: Psychiatric History: Reports: Anxiety, Depression, Suicidal Ideation Endocrine/Metabolic History: Reports: Diabetes, Type II Other Endocrine/Metabolic History: states possibly starting insulin but just controlled via Metformin currently. - Past Surgical History GI Surgical History: Reports: Cholecystectomy Social & Family History - Family History Family Medical History: No Pertinent Family History - Tobacco Use Tobacco Use Status *Q: Unknown Ever Used Tobacco ED ROS GENERAL - Review of Systems Review Of Systems: Comprehensive ROS is negative, except as noted in HPI. ED EXAM, GENERAL - Physical Exam Exam: See Below Exam Limited By: No Limitations General Appearance: Alert, WD/WN, No Apparent Distress Eye Exam: Bilateral Eye: EOMI, Normal Fundi, Normal Inspection, PERRL Ears: Normal External Exam, Normal Canal, Hearing Grossly Normal, Normal TMs Ear Exam: Bilateral Ear: Auricle Normal, Canal Normal, TM normal Nose: Normal Inspection, Nasal Tenderness (painful on palpation/precussion over R maxillary sinus area. ) Throat/Mouth: Normal Inspection, Normal Gums, Normal Oropharynx, Normal Voice, No Airway Compromise Head: Atraumatic, Normocephalic, Facial Tenderness, Sinus Tenderness Neck: Normal Inspection Respiratory/Chest: No Respiratory Distress, Lungs Clear, Normal Breath Sounds, No Accessory Muscle Use, Chest Non-Tender Cardiovascular: Normal Peripheral Pulses, Regular Rate, Rhythm, No Edema, No JVD, No Murmur Peripheral Pulses: 4+: Radial (L) GI/Abdominal: Soft, No Distention, No Mass (Female) Exam: Deferred Rectal (Female) Exam: Deferred Back Exam: Normal Inspection, Full Range of Motion Extremities: Normal Inspection, Normal Range of Motion, Non-Tender, No Pedal Edema, Normal Capillary Refill Neurological: Alert, Oriented, CN II-XII Intact, Normal Cognition, Normal Gait, Normal Reflexes, No Motor/Sensory Deficits Psychiatric: Normal Affect, Normal Mood Course - Vital Signs Last Recorded V/S: Last Vital Signs Temp 36.1 C 01/18/21 14:20 Pulse 97 01/18/21 14:20 Resp 18 01/18/21 14:20 BP 130/85 01/18/21 14:20 Pulse Ox 98 01/18/21 14:20 - Orders/Labs/Meds Meds: Medications Discontinued Medications Generic Name Dose Route Start Last Admin Trade Name Freq PRN Reason Stop Dose Admin Sodium Chloride 10 ml 01/18/21 14:41 Sodium Chloride 0.9% 10 Ml Syringe FLUSH ASDIRECTED PRN Keep Vein Open Departure - Departure Time of Disposition: 15:00 Disposition: Home, Self-Care 01 Clinical Impression: Sinusitis - Discharge Information Instructions: Amoxicillin; Clavulanic Acid Tablets, Sinusitis, Adult, [id number], Probiotics Referrals: PCP,None [Primary Care Provider] - Forms: ED Department Discharge Additional Instructions: Augmentin 875mg 1 twice daily for 10 days Drink plenty of fluids tylenol and ibuprofen as needed for discomfort Recheck in clinic in 10-14 days Sepsis Event Note (ED) - Evaluation Sepsis Screening Result: No Definite Risk - Focused Exam Vital Signs: Vital Signs Temp Pulse Resp BP Pulse Ox 01/18/21 14:20 36.1 C 97 18 130/85 98 - Problem List Review Problem List Initiated/Reviewed/Updated: Yes - Assessment/Plan Plan: Augmentin 875mg 1 twice daily for 10 days Drink plenty of fluids tylenol and ibuprofen as needed for discomfort Recheck in clinic in 10-14 days
== END 2021-01-18 14:37 | disposition home or self-care (01) ==
LOC: VM.ED 14:16
DX: J32.9 Chronic sinusitis, unspecified (principal); J45.909 Unspecified asthma, uncomplicated; E11.9 Type 2 diabetes mellitus without complications; Z91.040 Latex allergy status; Z91.013 Allergy to seafood; Z91.018 Allergy to other foods
CPT/HCPCS: 99283

== ENCOUNTER 2024-06-29 18:47 | Emergency (ER) | payer MEDICAID ==
[2024-06-29 20:07] VITALS: BP 147/79; PULSE 102
== END 2024-06-29 20:18 | disposition home or self-care (01) ==
LOC: VM.ED 18:47
DX: R07.89 Other chest pain (principal); J45.909 Unspecified asthma, uncomplicated; Z91.013 Allergy to seafood; Z91.018 Allergy to other foods; Z91.040 Latex allergy status; Z79.899 Other long term (current) drug therapy; Z90.49 Acquired absence of other specified parts of digestive tract
CPT/HCPCS: 99284

== ENCOUNTER 2024-09-10 20:55 | Emergency (ER) | payer MEDICAID ==
[2024-09-10] MEDS ORDERED: Sodium Chloride 0.9% 10 ML Syringe FLUSH PRN (21:00)
[2024-09-10] MEDS: Famotidine 20 MG/2 ML SDV IVPUSH ONE (21:17)
[2024-09-10] MEDS: methylPREDNISolone Sodium Succinate 125 MG/2 ML SDV IVPUSH ONE (21:17)
[2024-09-10] MEDS: diphenhydrAMINE 50 MG/ML SDV IVPUSH ONE (21:17)
[2024-09-10] MEDS: EPINEPHrine 1 MG/1 ML Amp IM ONE (21:18)
[2024-09-10] MEDS: Ondansetron 4 MG/2 ML SDV IVPUSH ONE (21:18)
[2024-09-11] VITALS: BP 139/90; PULSE 109
== END 2024-09-10 23:51 | disposition home or self-care (01) ==
LOC: VM.ED 20:55
DX: T78.1XXA Other adverse food reactions, not elsewhere classified, initial encounter (principal); R06.02 Shortness of breath; R06.2 Wheezing; E11.9 Type 2 diabetes mellitus without complications; Z79.899 Other long term (current) drug therapy; Z91.030 Bee allergy status; Z91.018 Allergy to other foods; Z91.040 Latex allergy status
CPT/HCPCS: 96372; 96374; 96375; 99284; 99284-25; J1200; J2405; J2919

== ENCOUNTER 2024-11-25 22:03 | Emergency (ER) | payer MEDICAID ==
[2024-11-25 22:17] VITALS: BP 144/88; PULSE 95
[2024-11-25] MEDS: Ondansetron 4 MG Tab.DIS PO ONE (22:26)
[2024-11-25] MEDS: Ondansetron 4 MG/2 ML SDV IVPUSH ONE (22:27)
[2024-11-25] MEDS: Take Home: Ondansetron 4 MG Tab.DIS, 5 Tab Pack PO ONE (22:46)
== END 2024-11-25 23:02 | disposition home or self-care (01) ==
LOC: VM.ED 22:03
DX: E11.65 Type 2 diabetes mellitus with hyperglycemia (principal); J45.909 Unspecified asthma, uncomplicated; Z90.49 Acquired absence of other specified parts of digestive tract; Z91.013 Allergy to seafood; Z91.040 Latex allergy status; Z91.018 Allergy to other foods; Z79.899 Other long term (current) drug therapy
CPT/HCPCS: 82947; 99284; A9270; Q0162